=== PATIENT | male | born 1985 | race African-American/Black ===

== ENCOUNTER 2024-01-06 20:52 | Emergency (ER) | payer SELFPAY ==
[2024-01-06 21:51] LABS: #Basophils 0.1 thou/uL (0.0-0.2); #Lymphocytes 2.5 thou/uL (1.20-3.40); #Monocytes 0.5 thou/uL (0.11-0.59); #Neutrophils 2.8 thou/uL (1.40-6.50); %Basophils 1.4 % (0.0-1.0); %Eosinophils 0.3 % (0.0-10.0); %Lymphocytes 43.2 % (21.0-51.0); %Monocytes 8.2 % (0.0-10.0); %Neutrophils 46.9 % (42.0-75.0)
[2024-01-06 22:11] LABS: Anion Gap 16 mmol/L (10-20); BUN (Urea Nitrogen) 12 mg/dL (8.9-20.6); Calc. Creatinine Clearance 0 mL/min (70-130); Calcium 8.8 mg/dL (7.8-10.44); Carbon Dioxide 22 mmol/L (22-29); Chloride 108 mmol/L (98-107); Estimated GFR 114; Glucose 131 mg/dL (70-105); Hematocrit 42.5 % (42.0-52.0); Hemoglobin 13.7 g/dL (14.0-18.0); MDiff Complete? YES; Macrocytosis SLIGHT = 6-15 cells (100X) (0-5/hpf); Mean Corpuscular HGB CONC 32.3 g/dL (32.0-36.0); Mean Corpuscular Hemoglobin 34.8 pg (27.0-31.0); Mean Corpuscular Volume 107.5 fl (78.0-98.0); Platelet Adequacy Comment Appears Adequate; Platelet Count 221 10x3/uL (130-400); Potassium 3.8 mmol/L (3.5-5.1); RBC Distribution Width 13.1 % (11.5-14.5); Red Blood Cell (RBC) Count 3.96 mill/uL (4.70-6.10); Sodium 142 mmol/L (136-145); White Blood Cell (WBC) Count 5.9 10x3/uL (4.8-10.8)
[2024-01-06 22:13] LABS: Troponin I Less than 0.010 ng/mL (< 0.028)
== END 2024-01-06 22:45 | disposition home or self-care (01) ==
LOC: MADERS 20:52
DX: R06.00 Dyspnea, unspecified (principal); F17.210 Nicotine dependence, cigarettes, uncomplicated
CPT/HCPCS: 71045; 80048; 83735; 84443; 84484; 85025; 93005